=== PATIENT | female | born 1985 | race Caucasian/White ===

== ENCOUNTER 2016-11-24 02:52 | Emergency (ER) | payer OTHER, MEDICAID ==
[2016-11-24 03:10] VITALS: RESP 16
[2016-11-24] MEDS ORDERED: Sodium Chloride 0.9% 1,000 ML IV ONE (03:20)
--- NOTE | 2016-11-24 03:21 | C.PDOC ---
History Of Present Illness 31 year old patient presents to the ED complaining of lower abdominal pain that started today. Patient states the pain is severe and associated with her menstrual cycle. Patient notes vaginal spotting since her last period which was on 11/10/16. She thinks she might be , but is unsure. Patient denies fever , nausea, vomiting, diarrhea or dysuria. Time Seen by Provider: 11/24/16 03:19 Chief Complaint (Nursing): Abdominal Pain History Per: Patient History/Exam Limitations: no limitations Onset/Duration Of Symptoms: Hrs (today) Current Symptoms Are (Timing): Still Present Severity: Severe Pain Scale Rating Of: 7 Location Of Pain/Discomfort: LUQ, LLQ Radiation Of Pain To:: None Quality Of Discomfort: "Pain" Exacerbating Factors: None Alleviating Factors: None Last Bowel Movement: Today Recent travel outside of the [place]: No Abnormal Vaginal Bleeding: Yes Last Menstral Period: 11/10/16 Past Medical History Reviewed: Historical Data, Nursing Documentation, Vital Signs Vital Signs: Last Vital Signs Temp 98 F 11/24/16 03:02 Pulse 90 11/24/16 03:02 Resp 16 11/24/16 03:02 BP 126/91 H 11/24/16 03:02 Pulse Ox 98 11/24/16 04:15 Family History: States: Unknown Family Hx - Social History Hx Alcohol Use: No Hx Substance Use: No - Immunization History Hx Tetanus Toxoid Vaccination: Yes Hx Influenza Vaccination: No Hx Pneumococcal Vaccination: No Review Of Systems Except As Marked, All Systems Reviewed And Found Negative. Constitutional: Negative for: Fever Gastrointestinal: Positive for: Abdominal Pain. Negative for: Nausea, Vomiting , Diarrhea Genitourinary: Positive for: Vaginal Bleeding (spotting). Negative for: Dysuria Physical Exam - Physical Exam Appears: Non-toxic, No Acute Distress Skin: Warm, Dry Head: Atraumatic, Normacephalic Oral Mucosa: Moist Neck: Normal ROM, Supple Chest: Symmetrical Cardiovascular: Rhythm Regular Respiratory: Normal Breath Sounds, No Rales, No Rhonchi, No Wheezing Gastrointestinal/Abdominal: Soft, Tenderness (bilateral lower quadrants), No Guarding, No Rebound Back: Normal Inspection, No CVA Tenderness Extremity: Normal ROM Neurological/Psych: Oriented x3 Gait: Steady ED Course And Treatment - Laboratory Results Result Diagrams: 11/24/16 04:03 11/24/16 04:03 O2 Sat by Pulse Oximetry: 98 (room air) Pulse Ox Interpretation: Normal Progress Note: Plan: Labs, IV fluids, Toradol, Pelvic US Disposition Counseled Patient/Family Regarding: Diagnosis - Disposition Referrals: [facility] [Outside] Disposition: HOME/ ROUTINE Disposition Time: 07:05 Condition: STABLE Prescriptions: Ibuprofen [Motrin Tab] 600 mg PO TIDPC #20 tab Instructions: Dysmenorrhea (ED) - POA Present On Arrival: None - Clinical Impression Clinical Impression: Dysmenorrhea - Scribe Statement The provider has reviewed the documentation as recorded by the Scribe Sofya Rodriguez Provider Attestation: All medical record entries made by the Scribe were at my direction and personally dictated by me. I have reviewed the chart and agree that the record accurately reflects my personal performance of the history, physical exam, medical decision making, and the department course for this patient. I have also personally directed, reviewed, and agree with the discharge instructions and disposition.
[2016-11-24 04:08] LABS: BASO # 0.3 K/uL (0.0-0.2); BASO % 2.3 % (0.0-2.0); EOS # 0.2 K/uL (0.0-0.7); EOS % 1.4 % (0.0-4.0); HEMATOCRIT 36.2 % (34.0-47.0); LYMPH # 2.2 K/uL (1.0-4.3); MEAN CELL VOLUME 75.4 fL (81.0-99.0); MEAN CORPUSCULAR HEMOGLOBIN 23.8 pg (27.0-31.0); MEAN CORPUSCULAR HGB CONC 31.6 g/dL (33.0-37.0); MEAN PLATELET VOLUME 7.8 fL (7.2-11.7); MONO # 0.8 K/uL (0.0-0.8); RED CELL DISTRIBUTION WIDTH 14.3 % (11.5-14.5); WHITE BLOOD COUNT 12.8 K/uL (4.8-10.8)
[2016-11-24 04:21] LABS: CHLORIDE 100 mmol/L (98-107)
[2016-11-24 04:22] LABS: POTASSIUM 3.8 mmol/L (3.6-5.2); SODIUM 139 mmol/L (132-148)
[2016-11-24 04:24] LABS: ALB/GLOB RATIO 1.6 (1.0-2.1); ALKALINE PHOSPHATASE 66 U/L (38-126); AST/SGOT 20 U/L (14-36); BILIRUBIN,TOTAL 0.6 mg/dL (0.2-1.3); CARBON DIOXIDE 25 mmol/L (22-30); GFR AFRICAN-AMERICAN > 60; TOTAL PROTEIN 8.2 g/dL (6.3-8.3)
[2016-11-24 04:25] LABS: ALT/SGPT 24 U/L (9-52); BLOOD UREA NITROGEN 9 mg/dL (7-17); GLUCOSE,RANDOM 92 mg/dL (65-105)
[2016-11-24 04:47] LABS: RBC URINE 116 /hpf (0-3); URINE BACTERIA RARE (<OCC); URINE BILIRUBIN NEGATIVE (NEGATIVE); URINE BLOOD 3+ (NEGATIVE); URINE GLUCOSE (UA) NORMAL (Normal); URINE KETONE NEGATIVE (NEGATIVE); URINE LEUKOCYTE ESTERASE NEG Leu/uL (Negative); URINE PROTEIN NEGATIVE (NEGATIVE); URINE UROBILINOGEN NORMAL mg/dL (0.2-1.0); WBC URINE 4 /hpf (0-5)
[2016-11-24 04:49] LABS: URINE COLOR LIGHT RED (YELLOW)
[2016-11-24 07:05] VITALS: BP 117/80; PULSE 75; TEMP 97.6
[2016-11-24 07:07] VITALS: O2SAT 98
--- NOTE | 2016-11-24 09:29 | US ---
HISTORY: Pelvic pain with vaginal spotting COMPARISON: None available. TECHNIQUE: Transvaginal pelvic ultrasound. FINDINGS: UTERUS: Measures 7.3 x 3.9 x 5.8 cm. Retroverted. ENDOMETRIUM: Measures 7 mm in diameter. CERVIX: Nabothian cysts. RIGHT OVARY: Measures 3.9 x 1.5 x 2.6 cm. Blood flow is demonstrated. LEFT OVARY: Measures 3.7 x 1.1 x 1.5 cm. Blood flow is demonstrated. FREE FLUID: No significant free fluid noted. OTHER FINDINGS: None. IMPRESSION: No acute findings. No evidence of intrauterine gestational sac. Please note that if the patient is based on serum beta HCG values, the sonographic findings represent either: Very early IUP; embryonic demise; ectopic gestation. Follow-up with serial quantitative serum beta HCG measurements and post OBGYN follow-up is mandatory, since ectopic gestation cannot be excluded based only on sonographic findings. Preliminary impression was provided by virtual radiologic.
== END 2016-11-24 07:16 | disposition home or self-care (01) ==
LOC: C.ER 02:52
DX: N94.6 Dysmenorrhea, unspecified (principal)
CPT/HCPCS: 76830; 80053; 81001; 84702; 85025; 87086; 96361; 96374; 99284; J1885; J7040